=== PATIENT | female | born 1965 | race Caucasian/White ===

== ENCOUNTER 2019-04-21 22:29 | Emergency (ER) | payer SELFPAY ==
[~2019-04-21] VITALS: Ht 165.1 cm; Wt 104.0 kg
[2019-04-22] MEDS ORDERED: KETOROLAC 60MG/2ML VIAL IM STA (00:22)
[2019-04-22 04:10] VITALS: BP 180/80
== END 2019-04-22 04:13 | disposition home or self-care (01) ==
LOC: ER 22:29
DX: S42.252A Displaced fracture of greater tuberosity of left humerus, initial encounter for closed fracture (principal); I10 Essential (primary) hypertension; Z90.710 Acquired absence of both cervix and uterus; W01.0XXA Fall on same level from slipping, tripping and stumbling without subsequent striking against object, initial encounter; Y93.89 Activity, other specified; Y92.89 Other specified places as the place of occurrence of the external cause; Y99.8 Other external cause status
CPT/HCPCS: 73030; 73060; 96372; 99283; J1885